=== PATIENT | male | born 1960 | race Caucasian/White ===

== ENCOUNTER 2020-05-28 12:48 | Emergency (ER) | payer SELFPAY ==
[2020-05-28 12:48] VITALS: BP 167/93; PULSE 70; RESP 4; TEMP 36.8; O2SAT 30; BMI 25.7
--- NOTE | 2020-05-28 12:53 | XR_ITS ---
PROCEDURE: XR CHEST PORTABLE CLINICAL HISTORY: overdose Altered mental status, altered level of consciousness, confusion, disorientation COMPARISON: No exams were available for comparison FINDINGS: The cardiomediastinal silhouette and pulmonary vascularity are within normal limits. The lungs are clear without infiltrates, suspicious nodules, or pleural effusions. No acute bony abnormalities. IMPRESSION: No acute findings. Dictated by: Yossi Crowe MD 05/28/2020 14:14 Yossi Croew MD in [facility] 05/28/2020 14:14
[2020-05-28 13:00] VITALS: BP 138/73; PULSE 79; RESP 17; O2SAT 98
--- NOTE | 2020-05-28 13:00 | PC.NURSE ---
upon arrival patient placed on hospital stretcher immediately and put on cardiac, spo2, nibp monitoring and o2 given 100% o2 via bag valve mask. dr ghotra reported to bedside upon arrival to room for eval. after narcan administered patient immediately responded and rr became normal and spo2/nibp normalized. pt is awake and alert at this time.
--- NOTE | 2020-05-28 13:37 | [facility].EDGENADL ---
ED Disposition Clinical Impression: Hyperglycemia Heroin overdose Qualifiers: Encounter type: initial encounter Injury intent: accidental or unintentional Qualified Code(s): T40.1X1A - Poisoning by heroin, accidental (unintentional), initial encounter Diabetes mellitus, type 2 Qualifiers: Diabetes mellitus residential insulin use: without manager intermediate use Diabetes mellitus complication status: with hyperglycemia Qualified Code(s): E11.65 - Type 2 diabetes mellitus with hyperglycemia Disposition: Home, Self-Care Condition on Discharge: Good Additional Instructions: Take Metformin as prescribed for diabetes. You are being provided with a list of physicians available for follow-up of your condition. Please call a physician on this list to arrange a follow-up appointment as soon as possible. Follow-up at [facility] [phone] Prescriptions: Metformin HCl 500 mg PO BID #60 tab Prescription Printed Referrals: PCP,No [Primary Care Provider] - - Critical Care Critical Care Time: Yes Attestation: On 05/28/20, the high probability of a clinically significant, sudden or life threatening deterioration of the following system(s) required my full and direct attention, intervention and personal management. The time I documented below is in addition to time spent performing reported procedures but includes the following listed in this critical care notation. Total Critical Care Time: 35 Vital system(s) involved:: Metabolic Failure, Respiratory Failure My critical care processes included: Assessment & monitoring of V/S, Initial and Re-exams, Data Review/Interpretation, Coordinating Care, Medication Orders and management, Documentation Medical Decision Making - Jeffery Inquiry Pt receiving controlled substance: No Vital Signs: 05/28/20 12:48 05/28/20 13:00 05/28/20 15:18 Temperature 98.2 F Temperature Source Temporal Artery Scan Pulse Rate [Right Radial] 70 79 69 Respiratory Rate 4 L 17 18 Blood Pressure [Right Arm] 167/93 H 138/73 120/76 Blood Pressure Mean [Right Arm] 117 94 90 Blood Pressure Source [Right Arm] Automatic Cuff Blood Pressure Position [Right Arm] Sitting 02 Sat by Pulse Oximetry 30 L 98 100 Oxygen Delivery Method Room Air 05/28/20 16:22 Temperature Temperature Source Pulse Rate [Right Radial] 103 H Respiratory Rate 20 Blood Pressure [Right Arm] 143/91 H Blood Pressure Mean [Right Arm] 108 Blood Pressure Source [Right Arm] Automatic Cuff Blood Pressure Position [Right Arm] Sitting 02 Sat by Pulse Oximetry 98 Oxygen Delivery Method - Lab Data Lab Results 05/28/20 13:12: WBC 12.3 H, RBC 5.43, Hgb 16.1, Hct 48.4, MCV 89.1, MCH 29.5, MCHC 33.2, RDW 13.8, Plt Count 224, MPV 8.9, Neut % (Auto) 54.1, Lymph % (Auto) 35.2, [place] % (Auto) 8.2, Eos % (Auto) 1.8, Baso % (Auto) 0.7, Neut # (Auto) 6.7, Lymph # (Auto) 4.3, [place] # (Auto) 1.0, Eos # (Auto) 0.2, Baso # (Auto) 0.1 05/28/20 13:12: Sodium 140, Potassium 3.6, Chloride 93 L, Carbon Dioxide 36 H, Anion Gap 14.6, BUN 17, Creatinine 0.90, Estimated Creat Clear 106, Estimated GFR 86, Est GFR ( Amer) 104, Glucose 291 H, Calcium 9.6, Total Bilirubin 0.8, AST 140 H, ALT 185 H, Alkaline Phosphatase 112, Total Protein 8.6 H, Albumin 4.4, Globulin 4.2 H, Albumin/Globulin Ratio 1.0 L, Salicylates < 1.0 L, Acetaminophen < 10 L 05/28/20 13:12: Plasma/Serum Alcohol < 10 05/28/20 14:14: Urine Color Yellow, Urine Appearance Clear, Urine pH 7.0, Ur Specific [place] 1.020, Urine Protein 1+, Urine Glucose (UA) 3+, Urine Ketones Negative, Urine Blood Trace-i, Urine Nitrate Negative, Urine Bilirubin Negative, Urine Urobilinogen 4.0, Ur Leukocyte Esterase Negative, Urine RBC Occasional, Urine WBC 3-5, Ur Squamous Epith Cells 3-5 05/28/20 14:14: Urine Opiates Screen Negative, Urine Methadone Screen Negative, Ur Barbituates Screen Negative, Ur Phencyclidine Scrn Negative, Ur Amphetamines Screen Positive H, U Benzodiazepines Scrn Negative, U
[2020-05-28 13:47] LABS: Basophils # 0.1 K/mm3 (0-0.2); Basophils % 0.7 % (0.1-2.0); Eosinophils # 0.2 K/mm3 (0.0-0.4); Eosinophils % 1.8 % (0.1-12.0); Hematocrit 48.4 % (42.0-52.0); Hemoglobin 16.1 g/dL (14.1-18.0); Lymphocytes # 4.3 K/mm3 (0.7-4.5); Lymphocytes % 35.2 % (10-50); Mean Corpuscular HGB Conc 33.2 g/dL (31.8-35.4); Mean Corpuscular Hemoglobin 29.5 pg (27.0-31.2); Mean Corpuscular Volume 89.1 fl (80-94); Mean Platelet Volume 8.9 fl (7.4-10.4); Monocytes % 8.2 % (1.7-9.3); Neutrophils # 6.7 K/mm3 (1.8-7.8); Neutrophils % 54.1 % (37.0-80.0); Platelet Count 224 K/mm3 (142-424); Red Blood Count 5.43 M/mm3 (4.60-6.20); Red Cell Distribution Width 13.8 % (11.5-17.5); White Blood Count 12.3 K/mm3 (4.8-10.8)
--- NOTE | 2020-05-28 13:49 | PC.NURSE ---
notified care management about pt requesting outpt drug rehab per ER MD, spoke with perico.
[2020-05-28 13:51] LABS: Chloride 93 mmol/L (98-107); Potassium 3.6 mmoL/L (3.5-5.1); Sodium 140 mmol/L (136-145)
[2020-05-28 13:53] LABS: Blood Urea Nitrogen 17 mg/dl (9-20); Creatinine Clearance Estimated 106 mL/min (50-200); Estimated Glomerular Filt Rate 86 ml/min (>60); GFR (African American) 104 ML/MIN (>60)
[2020-05-28 13:54] LABS: Alanine Aminotransferase 185 U/L (12-78); Albumin Level 4.4 g/dl (3.5-5.0); Alkaline Phosphatase 112 U/L (38-126); Anion Gap 14.6 mEq/L (5-15); Aspartate Amino Transferase 140 U/L (17-59); Bilirubin,Total 0.8 mg/dl (0.2-1.3); Calcium 9.6 mg/dl (8.4-10.2); Carbon Dioxide 36 mmol/L (22.0-30.0); Ethyl Alcohol < 10 mg/dl (0-10); Globulin 4.2 g/dL (1.3-3.2); Glucose 291 mg/dl (74-100); Total Protein,Serum 8.6 g/dl (6.3-8.2)
[2020-05-28 13:55] LABS: Acetaminophen < 10 ug/ml (10-30); Salicylate < 1.0 mg/dL (2.0-20.0)
--- NOTE | 2020-05-28 14:13 | SW/DCPLANNER ---
RECEIVED A PHONE CALL FROM WILL HANDLEY RN IN THE ED STATING THIS PATIENT HAS REQUESTED REHAB SERVICES... SOMEONE PULLED UP AT THE DOOR OF THE ED AND STATED THEY THINK THIS PATIENT OVERDOSED... PATIENT WAS GIVEN NARCAN AND IMMEDIATELY WOKE UP. I SENT DOWN AND SPOKE WITH HIM AND HE REEKED OF GASOLINE, HE COULDN'T TELL ME HOW HE GOT HERE AND SAID HE IS FROM [facility]... I GAVE HIM A RESOURCE LIST FOR LOCAL PLACES FOR OUT AND INPATIENT REHAB BUT WHEN HE TOLD ME HE WAS FROM [facility] I TOLD HIM IT WOULD BE BEST TO STOP IN TO [facility] AND ASK FOR RESOURCES CLOSE TO WHERE HE LIVES... I ASKED HIM HOW HE WAS GOING TO GET HOME AND HE SAID FOR ME NOT TO WORRY ABOUT IT... HE STATED HE HAS A SISTER THAT LIVES IN [place] AND HE CAN GET A RIDE.. HE WAS NOT INTERESTED OR COGNITIVE TO DISCUSS ANYTHING ELSE WITH ME...
[2020-05-28 14:28] LABS: Microscopic, Urine URINE MICROSCOPIC (MICROSCOPIC)
[2020-05-28 14:31] LABS: Appearance,Urine CLEAR (Clear); Bilirubin,Urine Negative (Negative); Blood, Urine TRACE-I (Negative); Color,Urine YELLOW (Yellow); Glucose,Urine (UA) 3+ (Negative); Ketones,Urine Negative (Negative); Leukocyte Esterase,Urine Negative (Negative); Nitrate,Urine Negative (Negative); Protein,Urine 1+ (Negative)
[2020-05-28 14:40] LABS: RBC,Urine Occasional #/hpf (0-3)
[2020-05-28 14:43] LABS: Amphetamine/Metha Screen,Urine Positive ng/ml (<1000); Barbiturates Screen,Urine Negative ng/ml (<200)
[2020-05-28 14:44] LABS: Benzodiazepines Screen,Urine Negative ng/ml (<200)
[2020-05-28 14:45] LABS: Cannabinoid Screen,Urine Positive ng/ml (<50)
[2020-05-28 14:46] LABS: Cocaine Screen,Urine Negative ng/ml (<300); Methadone Screen,Urine Negative ng/ml (<300)
[2020-05-28 14:48] LABS: Opiate Screen,Urine Negative ng/ml (<300); Phencyclidine Screen,Urine Negative ng/ml (<25)
[2020-05-28 14:56] LABS: POC Glucose,Bedside 505 (70-110)
[2020-05-28 15:17] LABS: Glucose,Random 510 mg/dL (74-100)
[2020-05-28 15:18] VITALS: BP 120/76; PULSE 69; RESP 18; O2SAT 100
[2020-05-28 16:22] VITALS: BP 143/91; PULSE 103; RESP 20; O2SAT 98
[2020-05-28 16:26] LABS: POC Glucose,Bedside 363 (70-110)
[2020-05-28 16:36] VITALS: BP 143/91; PULSE 89; RESP 15; TEMP 36.8; O2SAT 98
== END 2020-05-28 17:00 | disposition home or self-care (01) ==
PROVIDERS: Emergency Provider Emergency Medicine
DX: T40.1X1A Poisoning by heroin, accidental (unintentional), initial encounter (principal); E11.65 Type 2 diabetes mellitus with hyperglycemia; F17.210 Nicotine dependence, cigarettes, uncomplicated
CPT/HCPCS: 36415; 71045; 80053; 80305; 80329; 81001; 82947; 82962; 85025; 96365; 96372; 96375; 96376; 99284; J2310; J2405